=== PATIENT | female | born 1985 | race Caucasian/White ===

== ENCOUNTER 2021-12-14 04:53 | Emergency (ER) | payer OTHER ==
[~2021-12-14] VITALS: Ht 172.7 cm; Wt 62.0 kg
--- NOTE | 2021-12-14 05:15 | PHYS DOC ---
General Adult HPI: HPI: "..I ate a cup cake..and all sudden got this rash..."" These hives started about 20 minutes after eating. Sliding and something was on the cupcake or in the cupcake" Patient is a 36 year old female dependent who presents with on set of allergic reaction. Patient does not recall other triggering allergies. Patient is covered with hives. No stridor. Does have some scattered wheezes. Normally healthy. Up-to-date with vaccinations. No recent travel. No other new exposures noted. Normally follows at [place]. Review of Systems: Review of Systems: Constitutional: Denies fever or chills Eyes: Denies change in visual acuity HENT: Denies nasal congestion or sore throat Respiratory: Denies cough or shortness of breath Cardiovascular: Denies chest pain or edema GI: Denies abdominal pain, nausea, vomiting, bloody stools or diarrhea : Denies dysuria Musculoskeletal: Denies back pain or joint pain Integument: Complains of hives Neurologic: Denies headache, focal weakness or sensory changes Endocrine: Denies polyuria or polydipsia Lymphatic: Denies swollen glands Psychiatric: Denies depression or anxiety Family History: Family History: Noncontributory to presentation Current Medications: Current Meds: See nursing for home meds Allergies: Allergies: No known drug allergies Physical Exam: PE: Constitutional: Well developed, well nourished, in moderate acute distress, non- toxic appearance. [] HENT: Normocephalic, atraumatic, bilateral external ears normal, oropharynx moist, no oral exudates, nose normal. [] Eyes: PERRLA, EOMI, conjunctiva normal, no discharge. [] Neck: Normal range of motion, no tenderness, supple, no stridor. [] Cardiovascular:Heart rate regular rhythm, no murmur [] Lungs & Thorax: Bilateral breath sounds "few scattered wheezes on auscultation [] Abdomen: Bowel sounds normal, soft, no tenderness, no masses, no pulsatile masses. [] Skin: Warm, dry, no erythema, no rash. Hives Back: No tenderness, no CVA tenderness. [] Extremities: No tenderness, no cyanosis, no clubbing, ROM intact, no edema. [] Neurologic: Alert and oriented X 3, normal motor function, normal sensory function, no focal deficits noted. [] Psychologic: Affect anxious, judgement normal, mood normal. [] EKG: EKG: [] Radiology/Procedures: Radiology/Procedures: [] Heart Score: C/O Chest Pain: N/A Risk Factors: Risk Factors: DM, Current or recent (<one month) smoker, HTN, HLP, family history of CAD, obesity. Risk Scores: Score 0 - 3: 2.5% MACE over next 6 weeks - Discharge Home Score 4 - 6: 20.3% MACE over next 6 weeks - Admit for Clinical Observation Score 7 - 10: 72.7% MACE over next 6 weeks - Early Invasive Strategies Course & Med Decision Making: Course & Med Decision Making Pertinent Labs and Imaging studies reviewed. (See chart for details) Take Prednisone 50 day x 5, Pepcid 20 twice a day and Benadryl 50 up 4 x day. Use MDI two puff s four times a day. Follow up with primary. Return if any concerns.. Impression: 1. Allergic Reaction. [] Dragon Disclaimer: [place] Disclaimer: This electronic medical record was generated, in whole or in part, using a voice recognition dictation system. Departure Departure: Referrals: PCP,UNKNOWN (PCP) Scripts Diphenhydramine Hcl (BENADRYL ALLERGY) 25 Mg Tablet 50 MG PO QIDPRN PRN for ALLERGIES, #30 TAB Prov: MEENA MALDONADO MD 12/14/21 Famotidine (PEPCID) 20 Mg Tablet 20 MG PO BID for allergic for 10 Days, #20 TAB Prov: MEENA MALDONADO MD 12/14/21 Prednisone (PREDNISONE) 50 Mg Tablet 50 MG PO DAILY for allergic for 5 Days, #5 TAB Prov: MEENA MALDONADO MD 12/14/21 Alisha Disclaimer This chart was dictated in whole or in part using Voice Recognition software in a busy, high-work load, and often noisy Emergency Department environment. It may contain unintended and wholly unrecognized errors or omissions. Dragon Disclaimer This chart was dictated in whole or in part using Voice Recognition software in a busy, high-work load, and often noisy Emergency Department environment. It may contain unintended and wholly unrecognized errors or omissions. MEENA MALDONADO MD Dec 14, 2021 05:15
--- NOTE | 2021-12-14 05:27 | EKG ---
[address] [address] Test Date: 2021-12-14 Test Time: 05:19:00 Pat Name: YESSICA FENG Department: Room: Gender: F Maintenance Mechanic Telephone: : [phone] Requested By: MEENA MALDONADO Order Number: [id number] Reading MD: Marquis Garrett Measurements Intervals [place] Rate: 58 P: 47 MI: 136 QRS: 75 QRSD: 90 T: 68 QT: 414 QTc: 410 Interpretive Statements SINUS RHYTHM MILD NON SPECIFIC ST CHANGES Electronically Signed On 12-14-2021 14:43:24 FUNERAL DIRECTOR/EMBALMER/OWNER by Marquis Garrett
[2021-12-14] MEDS ORDERED: ALBUTEROL SULFATE 8GM INHALER. INH ONE (05:30)
[2021-12-14] MEDS ORDERED: MAGNESIUM HYDROXIDE 2,400 MG/30 ML ORAL.SUSP. PO ONE (05:30)
[2021-12-14] MEDS ORDERED: diphenhydrAMINE 50 MG/ML VIAL IVP ONE (05:30)
[2021-12-14] MEDS ORDERED: methylPREDNISolone SOD SUCC PF 125 MG/2 ML VIAL. IV ONE (05:30)
[2021-12-14] MEDS ORDERED: FAMOTIDINE 20 MG/2 ML VIAL IVP ONE (05:30)
[2021-12-14] MEDS ORDERED: DIPH25TA64 PO (05:37)
[2021-12-14] MEDS ORDERED: PRED50TA PO (05:37)
[2021-12-14] MEDS ORDERED: FAMO-63 PO (05:37)
[2021-12-14] MEDS ORDERED: IV RINGERS SOLUTION,LACTATED 1,000 ML IV ONE (06:00)
[2021-12-14 07:14] VITALS: BP 95/46
== END 2021-12-14 07:18 | disposition home or self-care (01) ==
LOC: ER 04:53
DX: T78.40XA Allergy, unspecified, initial encounter (principal); X58.XXXA Exposure to other specified factors, initial encounter
CPT/HCPCS: 93005; 94640; 96361; 96374; 96375; 99284; J1200; J2930; J3490; J7120; 94664